=== PATIENT | female | born 2000 | race Two or more races ===

== ENCOUNTER 2023-08-21 14:16 | Emergency (ER) | payer MEDICAID ==
[~2023-08-21] VITALS: Ht 165.1 cm; Wt 74.8 kg
[2023-08-21] MEDS ORDERED: FLUORESCEIN SODIUM OPHTH 1 EA STRIP ONE (14:31)
[2023-08-21 14:33] VITALS: BP 140/77; TEMP 98.3; O2SAT 99
[2023-08-21] MEDS ORDERED: MOXI3DRO EACHEYE (15:06)
== END 2023-08-21 15:16 | disposition home or self-care (01) ==
LOC: ER 14:30
DX: H11.002 Unspecified pterygium of left eye (principal)